=== PATIENT | female | born 1940 | race Caucasian/White ===

== ENCOUNTER 2016-08-05 06:54 | Inpatient (IN) | payer MEDICARE, BC ==
[~2016-08-05] VITALS: Ht 165.1 cm; Wt 61.0 kg
--- NOTE | ~2016-08-05 | EEP ---
Initial Pacemaker Generator Implant Report Demographics Patient Name HARRIET ENGLISH Gender Female Patient Number [id number] Race Visit Number [id number] Ethnicity Corporate ID Room Number 424 Accession Number [id number] Height 165.1 cm Date of 1940 Weight 61.23 kg Age 75 year(s) BSA 1.67 m Referring Physician Maribel Borges MD BMI 22.46 kg/m Vanessa Fernando MD Implanting Physician Maribel Borges MD Date of Study 08/05/2016 Assisting Physician Performing Physician Maribel Borges MD The procedure was explained in detail to the patient. Risks, complications and alternative treatments were reviewed. Written consent was obtained. Medications reviewed with patient prior to procedure. Conclusions Implantable Device Summary Summary Successful Dual Chamber Pacemaker implantation. Recommendations Chest x-ray after procedure and in the morning. Pacemaker check in the morning. Wound check in one week. Complications No complications. Procedure Procedure Type Pacemaker:Initial Insertion (generator and leads), Dual Lead PM Insert A&V Leads Indications Syncope and Second degree AV block/mobitz type II. Procedure Description The patient was brought to the electrophysiology laboratory in a fasting state. A baseline ECG was recorded. Surface ECG leads, intracardiac electrograms, blood pressure measurements, and pulse oximety signals were monitored. A grounding pad was placed on the left thigh. A defibrillator was configured to deliver shocks via self-adhesive lateral defibrillator pads. Conscious sedation was administered. The upper chest area was prepped with ChloraPrep. After a three minute dry time the patient was draped in a sterile fashion. 2 % Lidocaine with bupivacaine was used in the infraclavicular area and an incision was made. Blunt dissection down to the area of the Pectoralis Fascia was performed. Subclavian access was obtained and guidewires were placed into the SVC. 2 % Lidocaine with bupivacaine was used inferiorly to the incision. Blunt dissection anterior to the Pectoralis Fascia was used to form the pacemaker pocket. Over one wire, an intravenous sheath and dilator were placed in the superior vena cava under fluoroscopic vision. Through the sheath, the ventricular lead was then placed into the right ventricular apex under fluoroscopic vision and tested. The sheath was removed. The lead was sutured to the Pectoralis fascia using non-absorbable suture. Over the other wire, an intravenous sheath and dilator were placed in to the superior vena cava under fluoroscopic vision. Through the sheath, the atrial lead was then placed in the right atrium under fluoroscopic vision and tested. The sheath was removed. The lead was sutured to the Pectoralis Fascia using non-absorbable sutures. The leads were then connected to the pulse generator and screwed tight. The pocket was irrigated with antibiotic solution. The lead(s) and pulse generator were then placed into the pacemaker pocket. The incision was then closed. It was closed using 2-0 Vicryl for the deep and intermediate layer and 4-0 Vicryl for the subcuticular layer. A sterile dressing was applied. The patient tolerated the procedure well and was returned to the nursing unit in stable condition. Devices and Leads Devices + + + +--------+------+ +--------+ !Identification!Action !Location !Device !Serial!Implant !Comments! ! ! ! !name !# !date ! ! + + + +--------+------+ +--------+ !New implant !Implanted !Left !LUCIANOO![id number]!08/05/2016! ! ! ! !Subclavicular!MRI DR ! ! ! ! ! ! ! !L111 ! ! ! ! + + + +--------+------+ +--------+ Leads + + +---------+ +------+ +---------+ !Identification!Action !Location !Lead name !Serial!Implant !Comments ! ! ! ! ! !# !date ! ! + + +---------+ +------+ +---------+ !New implant !Implanted !RA !PACER LEAD![id number]!08/05/2016! ! ! ! !appendage!INGEVITY ! ! ! ! ! ! ! !MRI 52 CM ! ! ! ! + + +---------+ +------+ +---------+ !New implant !Implanted !RV septum!PACER LEAD![id number]!08/05/2016! ! ! ! ! !INGEVITY ! ! ! ! ! ! ! !MRI 59 CM ! ! ! ! + + +---------+ +------+ +---------+ Leads Measured and Programmed Data + +---------+ +---------+ +---------+ + +--- ----+ !Lead !Sensing Amplitude !Threshold (V) !Pulse Width (ms) !Impendence!Current! ! !(mV) ! ! !(Ohms) !(mA) ! + +---------+ +---------+ +---------+ + +--- ----+ ! !Measured !Programmed !Measured !Programmed !Measured !Programmed ! ! ! + +---------+ +---------+ +---------+ + +--- ----+ !RA !4.9 !0.5 !1.5 !3.5 !0.5 !0.5 !659 !2.3 ! !appendage ! ! ! ! ! ! ! ! ! + +---------+ +---------+ +---------+ + +--- ----+ !RV septum !10.9 !2.5 !0.4 !3.5 !0.5 !0.5 !922 !0.5 ! + +---------+ +---------+ +---------+ + +--- ----+ Device Programming Bradycardia Zone +-------+--------+--------+--------+ + +------+--------+ !Pacing !Mode !Lower !Upper !Paced AV !Sensed AV !PVARP !VRP (ms)! !Mode !Switch !Rate !Rate !Interval !Interval !(ms) ! ! ! ! !(ppm) !(ppm) !(ms) !(ms) ! ! ! +-------+--------+--------+--------+ + +------+--------+ !DDDR !On !60 !130 !210 !180 !320 !250 ! +-------+--------+--------+--------+ + +------+--------+ Medical History Allergies - Contrast:. Admission Data Admission Date: 08/05/2016 Admission Time: 06:54 Insurance Payors:Medicare. Hospital Status:Inpatient. Procedure Data Procedure Date:08/05/2016Start:09:57End:10:48 Fluoroscopy Time: 6:54 minutes. Estimated blood loss:15 ml. Contrast Material - Isovue 370,10 ml. Procedure Medications Order and Administration + + +---------+---------+ !Time !Medication !Dosage !Route ! + + +---------+---------+ !08/05/2016 09:43 !Odalysryl !25 mg !I.V. ! + + +---------+---------+ !08/05/2016 09:43 !Sodium Chloride !10 ml !I.V. ! + + +---------+---------+ !08/05/2016 09:45 !Ancef !2 g !I.V. ! + + +---------+---------+ !08/05/2016 09:46 !Oxygen !2 l/min !NC ! + + +---------+---------+ !08/05/2016 09:48 !Versed !2 mg !I.V. ! + + +---------+---------+ !08/05/2016 09:48 !Fentanyl !50 mcg !I.V. ! + + +---------+---------+ !08/05/2016 09:49 !Sodium Chloride !10 ml !I.V. ! + + +---------+---------+ !08/05/2016 10:05 !Versed !1 mg !I.V. ! + + +---------+---------+ !08/05/2016 10:05 !Fentanyl !25 mcg !I.V. ! + + +---------+---------+ !08/05/2016 10:30 !Ancef !1 g !Pocket ! + + +---------+---------+ Signatures
--- NOTE | ~2016-08-05 | FD ---
ADMIT: 08/05/2016 RM/LOC: [address] [facility] MR#: [id number] [address] [address] TAMEKA LARIOS [address] [place] [address] Final Diagnosis SEX: F AGE: 75 : 1940 ADMISSION DATE: 08/05/2016 DISCHARGE DATE: 08/06/2016 Dary Caba RN, scribing for Dr. Jony López. REASON FOR ADMISSION: Syncope with Mobitz type 2 second-degree block. PROCEDURES PERFORMED: On 08/05/2016, by Dr. Jony López. Dual-chamber permanent pacemaker insertion. FINAL DIAGNOSES: 1. Syncope. 2. Mobitz type 2 heart block. 3. Status post dual-chamber permanent pacemaker. Dary Caba RN / Tracey López MD / guy JOB #: [id number] CC: Chao López, Attending Physician Russel Mendez MD, Family Physician
[2016-08-07] MEDS ORDERED: ASPIR 8181 MG PO (09:26)
[2016-08-07] MEDS ORDERED: OMEGA-3 DPS1000 MG PO (09:36)
[2016-08-07] MEDS ORDERED: CELEXA40 MG PO (09:36)
[2016-08-07] MEDS ORDERED: CALCIUM500 MG PO (09:36)
[2016-08-07] MEDS ORDERED: CAL MAG ZINC +1 EAC1 PO (09:36)
[2016-08-07] MEDS ORDERED: GLUCOSAMINE &1 EACH PO (09:37)
[2016-08-07] MEDS ORDERED: PROTONIX40 M2 PO (09:37)
[2016-08-07] MEDS ORDERED: DAILY MULTIPLE1 EAC1 PO (09:37)
[2016-08-07] MEDS ORDERED: TIROSINT50 MCG PO (09:37)
[2016-08-07] MEDS ORDERED: VITAMIN E400 UNI3 PO (09:38)
[2016-08-07] MEDS ORDERED: VITAMIN B-125000 MC1 PO (09:38)
== END 2016-08-06 13:30 | disposition home or self-care (01) | DRG 244 ==
LOC: WOR 06:54 → 4PCU 10:45
PROVIDERS: ADMIT Internal Medicine
PROC: 0JH606Z Insertion of Pacemaker, Dual Chamber into Chest Subcutaneous Tissue and Fascia, Open Approach (ICD-10-PCS; principal; 2016-08-05)
PROC: 02H63JZ Insertion of Pacemaker Lead into Right Atrium, Percutaneous Approach (ICD-10-PCS; principal; 2016-08-05)
PROC: 02HK3JZ Insertion of Pacemaker Lead into Right Ventricle, Percutaneous Approach (ICD-10-PCS; principal; 2016-08-05)
DX: I44.1 Atrioventricular block, second degree (principal); I10 Essential (primary) hypertension